=== PATIENT | female | born 1955 | race American Indian/Alaskan Native ===

== ENCOUNTER 2017-01-27 17:03 | Emergency (ER) | payer OTHER ==
[2017-01-27 17:38] VITALS: BP 131/60
--- NOTE | 2017-01-27 20:46 | Emergency Department Report ---
ED Lower Extremity HPI - General Chief Complaint: Extremity Injury, Lower Stated Complaint: LEFT ANKLE PAIN / FELL Time Seen by Provider: 01/27/17 19:31 Source: patient Mode of arrival: Ambulatory Limitations: No Limitations - History of Present Illness Initial Comments: 61-year-old female past medical history arthritis hypertension hyperlipidemia presents complaining of left ankle pain status post slip and fall outside of her home. Patient states that she slipped on wet concrete outside of her home, only complaining of injury to left ankle, left ankle swollen. Patient fell outside of her home this morning. Denies any loss of consciousness denies any headache no chest pain no abdominal pain no lower back pain. States that she took one Tylenol No. 3 that she had left over from previous surgery at home and it slightly helped her pain. Patient is able to stand but walking is difficult due to pain and left ankle. No lacerations sustained. Patient is awake alert and oriented 3 denies any head or neck trauma associated with the fall. No acute distress on my clinical exam. MD Complaint: ankle injury (left) Onset/Timin -: hour(s) Injury: Ankle: Left Place: home Severity: moderate Severity scale (0 -10): 6 Improves With: immobilization Worsens With: weight bearing Associated Symptoms: snap/pop sensation, swelling, able to partially bear weight - Related Data Previous Rx's Medication Instructions Recorded Last Taken Type Acetaminophen [Acetaminophen TAB] 500 mg PO Q6HR PRN #25 tablet 01/27/17 Unknown Rx ED Review of Systems ROS: Stated complaint: LEFT ANKLE PAIN / FELL Other details as noted in HPI Constitutional: denies: chills, fever Eyes: denies: eye pain, eye discharge, vision change ENT: denies: ear pain, throat pain Respiratory: denies: cough, shortness of breath, wheezing Cardiovascular: denies: chest pain, palpitations Endocrine: no symptoms reported Gastrointestinal: denies: abdominal pain, nausea, diarrhea Genitourinary: denies: urgency, dysuria, discharge Musculoskeletal: as per HPI. denies: back pain, joint swelling, arthralgia Skin: denies: rash, lesions Neurological: denies: headache, weakness, paresthesias Psychiatric: denies: anxiety, depression Hematological/Lymphatic: denies: easy bleeding, easy bruising ED Past Medical Hx - Past Medical History Hx Hypertension: Yes Hx Arthritis: Yes Additional medical history: High Cholesterol - Surgical History Past Surgical History?: No Additional Surgical History: Hysterectomy - Social History Smoking Status: Never Smoker Substance Use Type: None - Medications Home Medications: Home Medications Medication Instructions Recorded Confirmed Last Taken Type Acetaminophen [Acetaminophen TAB] 500 mg PO Q6HR PRN #25 tablet 01/27/17 Unknown Rx ED Physical Exam - General Limitations: No Limitations General appearance: alert, in no apparent distress - Head Head exam: Present: atraumatic, normocephalic - Eye Eye exam: Present: normal appearance, PERRL, EOMI - ENT ENT exam: Present: mucous membranes moist - Neck Neck exam: Present: normal inspection - Respiratory Respiratory exam: Present: normal lung sounds bilaterally. Absent: respiratory distress - Cardiovascular Cardiovascular Exam: Present: regular rate, normal rhythm. Absent: systolic murmur, diastolic murmur, rubs, gallop - GI/Abdominal GI/Abdominal exam: Present: soft, normal bowel sounds - Extremities Exam Extremities exam: Present: normal inspection - Expanded Lower Extremity Exam Left Hip exam: Present: normal inspection, full ROM Upper Leg exam: Present: normal inspection, full ROM Knee exam: Present: normal inspection, full ROM Lower Leg exam: Present: full ROM, tenderness, swelling Ankle exam: Present: swelling (tenderness anteriro ankle) Foot/Toe exam: Present: normal inspection, full ROM Neuro vascular tendon exam: Present: no vascular compromise Gait: Positive: antalgic - Back Exam Back exam: Present: normal inspection - Neurological Exam Neurological exam: Present: alert, oriented X3 - Psychiatric Psychiatric exam: Present: normal affect, normal mood - Skin Skin exam: Present: warm, dry, intact, normal color. Absent: rash ED Course Vital Signs 01/27/17 17:33 Temperature 98.0 F Pulse Rate 90 Respiratory 20 Rate Blood Pressure 131/60 O2 Sat by Pulse 100 Oximetry ED Lower Extremity MDM - Medical Decision Making A/P: ankle sprain left 1- pt states she had crutches at home, will give ortho shoe and ankle air sitruup splint for added support w/ renae wrap. good distal dorsalis pedics and posterior tibial pulses, distal sensation intact 2- RICE therapy 3- f/u with podiatry 4- short course tylenol for pain control PRN, pt has bottle of codeine from previous surgery already Critical care attestation.: If time is entered above; I have spent that time in minutes in the direct care of this critically ill patient, excluding procedure time. ED Disposition Clinical Impression: Ankle sprain Qualifiers: Encounter type: initial encounter Involved ligament of ankle: tibiofibular ligament Laterality: left Qualified Code(s): S93.432A - Sprain of tibiofibular ligament of left ankle, initial encounter Disposition: DISCHARGED TO HOME OR SELFCARE Is pt being admited?: No Does the pt Need Aspirin: No Condition: Stable Instructions: Ankle Sprain (ED), Ankle Stirrup Splint (ED), RICE Therapy (ED) Prescriptions: Acetaminophen [Acetaminophen TAB] 500 mg PO Q6HR PRN #25 tablet PRN Reason: Pain Referrals: SARAH ESPOSITO DPM [Staff Physician] - 3-5 Days Forms: Work/School Release Form(ED) Time of Disposition: 21:00
--- NOTE | 2017-01-27 20:50 | XRay Report ---
FINAL REPORT PROCEDURE: XR FOOT 2V LT TECHNIQUE: LEFT foot radiographs, AP and lateral views. HISTORY: s/p fall COMPARISON: No prior studies are available for comparison. FINDINGS: Fracture (s) and/or Dislocation(s): None . Alignment: Normal. 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 There are dorsal spurs of the tarsal bones. Soft tissues: Normal. Bone mineralization: There is generalized osteopenia. Foreign bodies: None. Calcaneal spurring: There is an inferior calcaneal spur. IMPRESSION: There are no fractures. 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 There are dorsal spurs of the tarsal bones. There is generalized osteopenia. There is an inferior calcaneal spur.
--- NOTE | 2017-01-27 20:58 | XRay Report ---
FINAL REPORT PROCEDURE: XR ANKLE 3 LT TECHNIQUE: Left ankle radiographs, AP, lateral, and oblique views. CPT 35863 HISTORY: s/p fall ? fracture COMPARISON: No prior studies are available for comparison. FINDINGS: Fracture (s) and/or Dislocation(s): None . Alignment: Normal . Joint space(s): Normal . Soft tissues: Normal . Bone mineralization: Normal . Foreign bodies: None . Calcaneal spurring: There is a small inferior calcaneal spur.. IMPRESSION: There is no fracture or malalignment. There is a small inferior calcaneal spur..
== END 2017-01-27 21:25 | disposition home or self-care (01) ==
LOC: ED 17:03
DX: S93.432A Sprain of tibiofibular ligament of left ankle, initial encounter (principal); I10 Essential (primary) hypertension; M19.90 Unspecified osteoarthritis, unspecified site; E78.00 Pure hypercholesterolemia, unspecified; Z90.710 Acquired absence of both cervix and uterus; Z79.1 Long term (current) use of non-steroidal anti-inflammatories (NSAID); W01.0XXA Fall on same level from slipping, tripping and stumbling without subsequent striking against object, initial encounter; Y93.89 Activity, other specified; Y99.8 Other external cause status; Y92.098 Other place in other non-institutional residence as the place of occurrence of the external cause
CPT/HCPCS: 99283

== ENCOUNTER 2017-05-20 09:52 | Day surgery (SDC) | payer OTHER ==
[2017-05-20] MEDS ORDERED: NACL 0.9% 1000 ML 1,000 ML IV SCH (11:00)
[2017-05-20] MEDS ORDERED: WATER FOR IRRIG STERILE IR ONE (11:31)
--- NOTE | 2017-05-20 11:50 | History and Physical Report ---
History of Present Illness Date of examination: 05/20/17 Date of admission: 05/20/2017 Chief complaint: Colorectal cancer screening. History of present illness: Patient is a 61-year-old female who presents for colorectal cancer screening. Denies any other complaints. She has a past history of colon polyps. However colonoscopy was about 4 years ago. Because of the number of polyps she had, she had been instructed to do a colonoscopy in 3 years. Past History Past Medical History: hypertension, hyperlipidemia, other (asthma the Jamshidi joint disease) Past Surgical History: No surgical history Social history: denies: smoking, alcohol abuse Family history: denies: no significant family history Medications and Allergies Allergies Allergy/AdvReac Type Severity Reaction Status Date / Time No Known Allergies Allergy Verified 05/20/17 10:01 Home Medications Medication Instructions Recorded Confirmed Last Taken Type Acetaminophen [Acetaminophen TAB] 500 mg PO Q6HR PRN #25 tablet 01/27/17 Unknown Rx Hydroxychloroquine 200 mg PO HS 05/20/17 05/20/17 05/19/17 History Montelukast 10 mg PO HS 05/20/17 05/20/17 05/19/17 History Ranitidine HCl 150 mg PO HS 05/20/17 05/20/17 05/19/17 History Simvastatin [Zocor TAB] 20 mg PO HS 05/20/17 05/20/17 05/19/17 History Active Meds: Active Medications Sodium Chloride (Nacl 0.9% 1000 Ml) 1,000 mls @ 50 mls/hr IV DIRECT MIKE Last Admin: 05/20/17 10:29 Dose: 50 mls/hr Review of Systems All systems: negative Exam - Constitutional Vitals: Temp Pulse Resp BP Pulse Ox 98.2 F 71 11 L 128/62 100 05/20/17 10:27 05/20/17 10:27 05/20/17 10:27 05/20/17 10:27 05/20/17 10:27 General appearance: Present: no acute distress, well-nourished - EENT Eyes: Present: PERRL ENT: hearing intact, clear oral mucosa - Neck Neck: Present: supple, normal ROM - Respiratory Respiratory effort: normal Respiratory: bilateral: CTA - Cardiovascular Heart Sounds: Present: S1 & S2. Absent: rub, click - Extremities Extremities: pulses symmetrical, No edema Peripheral Pulses: within normal limits - Abdominal General gastrointestinal: Present: soft, non-tender, non-distended, normal bowel sounds Female genitourinary: Present: normal - Integumentary Integumentary: Present: clear, warm, dry - Musculoskeletal Musculoskeletal: gait normal, strength equal bilaterally - Psychiatric Psychiatric: appropriate mood/affect, intact judgment & insight - Neurologic Neurologic: CNII-XII intact, moves all extremities Assessment and Plan Colorectal cancer screening. Past history of colon polyps. Plan: Full colonoscopy.
--- NOTE | 2017-05-20 11:51 | Operative Report ---
Operative Report Operative Report: Date of procedure: 05/20/2017 Procedure: Colonoscopy with multiple hot biopsy polypectomies and polyp ablation. Attending physician: Jaxson Gutierres MD Acquisition Marketing Manager: Jaxson Gutierres MD Indication: Patient is a 61-year-old female who presents for colorectal cancer screening. She has a past history of colon polyps. Consent: Informed consent was obtained after advising the patient and family regarding nature of this procedure, its indications, potential benefits as well as possible complications including but not limited to bleeding perforation and adverse reaction to medication, infection as well as other cardiopulmonary complications. An informed written and verbal consent was then obtained after due opportunity was provided for questions and answers. Monitoring: Patient was monitored continuously with pulse oximetry and electrocardiographic recordings as well as blood pressure recordings. Vital signs remained stable throughout this procedure with no untoward events. Preoperative assessment: Patient was assessed immediately prior to this procedure for capacity to tolerate monitored anesthesia care and moderate sedation as well as general anesthesia. Patient's ASA classification is 2, Mallampati class is 2, Hyomental distance is 3. Instrument: Tugenden video colonoscope Medications: Propofol, given intravenously in divided doses. For details please refer to anesthesia records. Description of procedure: Patient was placed in the left lateral decubitus position after achieving sedation, a digital rectal examination was performed following which the colonoscope was introduced into the anal verge and advanced to the cecum which was identified by the cecal valve, the appendiceal orifice, as well as by the cecal strap and direct transillumination. The colonoscope was subsequently withdrawn with careful inspection of all mucosal surfaces. Patient tolerated this procedure well and was subsequently taken to the recovery room. The following findings were noted. Findings: Patient had multiple diminutive polyps in the sigmoid colon. These were all removed by hot biopsy polypectomy. There was a transverse colon sessile polyp. It Measured approximate 5-6 mm. This was removed by hot biopsy polypectomy. There was another 4-5 mm polyp in the ascending colon which was also removed by hot biopsy polypectomy. There was a diminutive polyp in the rectum which was ablated. The rest of the colon was normal. On the retroflex examination at the anal verge, patient had internal hemorrhoids. Impression: Multiple diminutive polyps in the sigmoid colon status post hot biopsy polypectomy. Transverse colon polyp status post hot biopsy polypectomy. Ascending colon polyp status post hot biopsy polypectomy. Rectal polyp status post ablation. Internal hemorrhoids. Plan: Follow pathology report. High-fiber diet. Repeat colonoscopy in 5 years.
[2017-05-20] MEDS ORDERED: DIPRIVAN 10 MG/ML IV ONE ×2 (11:59)
--- NOTE | 2017-05-20 12:33 | Discharge Summary ---
Short Stay Discharge Plan Activity: advance as tolerated Weight Bearing Status: Weight Bear as Tolerated Diet: regular Follow up with: PRIMARY CARE, [Primary Care Provider] - 7 Days
[2017-05-20 13:06] VITALS: BP 114/55
--- NOTE | 2017-05-20 15:56 | Post Anesthesia Evaluation ---
- Post Anesthesia Evaluation Patient Participated: Yes Airway Patent: Yes Stable Respiratory Function: Yes Nausea/Vomiting: No Temp > 96.8F: Yes Pain Manageable: Yes Adequeate Hydration: Yes Anesthesia Complications: No Block Receding Appropriately: Not Applicable Patient on Ventilator: No
== END 2017-05-20 09:53 | disposition home or self-care (01) ==
LOC: GIO 09:52
PROVIDERS: ATTEND Internal Medicine Gastroenterology
DX: Z09 Encounter for follow-up examination after completed treatment for conditions other than malignant neoplasm (principal); K63.5 Polyp of colon; K62.1 Rectal polyp; K64.8 Other hemorrhoids; I10 Essential (primary) hypertension; E78.00 Pure hypercholesterolemia, unspecified; J45.909 Unspecified asthma, uncomplicated; M19.90 Unspecified osteoarthritis, unspecified site; Z79.899 Other long term (current) drug therapy; Z87.19 Personal history of other diseases of the digestive system; Z98.890 Other specified postprocedural states; Z72.89 Other problems related to lifestyle; Z82.49 Family history of ischemic heart disease and other diseases of the circulatory system; Z83.3 Family history of diabetes mellitus
CPT/HCPCS: 45384; 45388; 88305; J2704; J7030

== ENCOUNTER 2017-11-12 12:44 | Outpatient (CLI) | payer OTHER ==
--- NOTE | 2017-11-12 15:42 | Mammography Report ---
BONE DENSITY STUDY: Postmenopausal osteoporosis screening. DEFINITIONS: BMD = Bone Mineral Density T-score = BMD related to mean peak bone mass of young adult (mean expressed in Standard Deviation) Z-score = Age matched BMD expressed in SD World Health Organization (WHO) Diagnostic Criteria Normal T-score > -1 SD Osteopenia T-score between -1 and -2.4 SD Osteoporosis T-score -2.5 SD or below FINDINGS: The weighted average BMD of lumbar spine L1-L4 is 0.920 with a T-score of -1.2. The weighted average BMD of the right hip is 0.743 with a T-score of -1.6. IMPRESSION: The patient's average T-score is diagnostic for osteopenia and average relative risk for fracture. NOTE: BMD is not the only risk factor for fracture; also consider factors such as the patient's age, risk of falling, previous osteoporotic fracture, family history of osteoporotic fractures, current smoker, and low body weight. Escalante's triangle is a region of interest in femur, predominantly of trabecular bone. It is not a true anatomic site, and ISCD does not recommend its use clinically.
== END 2017-11-12 12:45 | disposition home or self-care (01) ==
LOC: MAMMO 12:44
PROVIDERS: ATTEND Internal Medicine
DX: M85.88 Other specified disorders of bone density and structure, other site (principal); Z78.0 Asymptomatic menopausal state; I10 Essential (primary) hypertension; E78.00 Pure hypercholesterolemia, unspecified; J45.909 Unspecified asthma, uncomplicated
CPT/HCPCS: 77080